=== PATIENT | female | born 1985 | race Caucasian/White ===

== ENCOUNTER 2017-05-07 19:15 | Emergency (ER) | payer OTHER ==
[2017-05-07 20:11] VITALS: BP 120/72; PULSE 63; TEMP 98.2; BMI 25.9
--- NOTE | 2017-05-07 20:28 | PDOC ---
History of Present Illness - General Chief Complaint: Pain Stated Complaint: HEADACHE History Source: Patient Exam Limitations: No Limitations - History of Present Illness Initial Comments: 05/07/17 21:20 31-year-old female with no medical history presents to the emergency department complaining of frontal/bitemporal 6/10 dull nonradiating intermittent headache with noise sensitivity but without fever, chills, nausea/vomiting, visual disturbance, neck pain/neck stiffness, back pains, chest pain, shortness of breath, abdominal pains, ext numbness or tingling sensation. Patient denies any trauma or injury. Patient states she was resting when the headache came on gradually. Patient took Tylenol with minimal relief there are no exacerbating factors. LMP x1week ago Timing/Duration: reports: other (x5d) Past History - Past Medical History Allergies/Adverse Reactions: Allergies Allergy/AdvReac Type Severity Reaction Status Date / Time No Known Allergies Allergy Verified 05/07/17 20:08 Other medical history: Pt denies - Suicide/Smoking/Psychosocial Hx Smoking History: Never smoked Have you smoked in the past 12 months: No Information on smoking cessation initiated: No Hx Alcohol Use: No Drug/Substance Use Hx: No Substance Use Type: None Review of Systems - Review of Systems Able to Perform ROS?: Yes Comments:: 05/07/17 21:21 CONSTITUTIONAL: Absent: fever, chills, diaphoresis, generalized weakness, malaise, loss of appetite HEENT: Absent: rhinorrhea, nasal congestion, throat pain, throat swelling, difficulty swallowing, mouth swelling, ear pain, eye pain, visual Changes CARDIOVASCULAR: Absent: chest pain, loss of consciousness, palpitations, irregular heart rate, peripheral edema RESPIRATORY: Absent: cough, shortness of breath, dyspnea with exertion, orthopnea, wheezing, stridor, hemoptysis GASTROINTESTINAL: Absent: abdominal pain, abdominal distension, nausea, vomiting, diarrhea, constipation, melena, hematochezia GENITOURINARY: Absent: dysuria, frequency, urgency, hesitancy, hematuria, flank pain, genital pain MUSCULOSKELETAL: Absent: myalgia, arthralgia, joint swelling SKIN: Absent: rash, itching, pallor HEMATOLOGIC/IMMUNOLOGIC: Absent: easy bleeding, easy bruising, lymphadenopathy, frequent infections ENDOCRINE: Absent: unexplained weight gain, unexplained weight loss, heat intolerance, cold intolerance NEUROLOGIC: +HAIR Absent: focal weakness or paresthesias, dizziness, unsteady gait, seizure, mental status changes, bladder or bowel incontinence PSYCHIATRIC: Absent: anxiety, depression, suicidal or homicidal ideation, hallucinations. Is the patient limited Yakut proficient: No *Physical Exam - Vital Signs Last Vital Signs Temp Pulse Resp BP Pulse Ox 98.2 F 63 18 120/72 100 05/07/17 20:08 05/07/17 20:08 05/07/17 20:08 05/07/17 20:08 05/07/17 20:08 - Physical Exam Comments: 05/07/17 21:23 GENERAL: Well developed, well nourished. Awake and alert. No acute distress. HEENT: Normocephalic, atraumatic. PERRLA, EOMI. No conjunctival pallor. Sclera are non- icteric. Moist mucous membranes. Oropharynx is clear. NECK: Supple. Full ROM. No JVD. Carotid pulses 2+ and symmetric, without bruits. No thyromegaly. No lymphadenopathy. CARDIOVASCULAR: Regular rate and rhythm. No murmurs, rubs, or gallops. Distal pulses are 2+ and symmetric. PULMONARY: No evidence of respiratory distress. Lungs clear to auscultation bilaterally. No wheezing, rales or rhonchi. ABDOMINAL: Soft. Non-tender. Non-distended. No rebound or guarding. No organomegaly. Normoactive bowel sounds. MUSCULOSKELETAL Normal range of motion at all joints. No bony deformities or tenderness. No CVA tenderness. EXTREMITIES: No cyanosis. No clubbing. No edema. No calf tenderness. SKIN: Warm and dry. Normal capillary refill. No rashes. No jaundice. NEUROLOGICAL: Alert, awake, appropriate. Cranial nerves 2-12 intact. No deficits to light touch and temperature in face, upper extremities and lower extremities. No motor deficits in the in face, upper extremities and lower extremities. Normoreflexic in the upper and lower extremities. Normal speech. Toes are down- going bilaterally. Gait is normal without ataxia. PSYCHIATRIC: Cooperative. Good eye contact. Appropriate mood and affect. ED Treatment Course - LABORATORY CBC & Chemistry Diagram: 05/07/17 20:26 05/07/17 20:26 - RADIOLOGY Radiograph Interpretation: 05/07/17 21:23 CT head w/o contrast: No acute brain parenchymal abnormality. No hemorrhage, mass or acute territorial infarct. Clear visualized paranasal sinuses. Visualized mastoid ear cells clear. Progress Note - Progress Note Progress Note: 2250hrs: Pt feels "better" 08/10 *DC/Admit/Observation/Transfer Diagnosis at time of Disposition: Headache Qualifiers: Headache type: tension-type Headache chronicity pattern: acute headache Intractability: not intractable Qualified Code(s): G44.209 - Tension-type headache, unspecified, not intractable; G44.209 - Tension-type headache, unspecified, not intractable - Discharge Dispostion Disposition: HOME Condition at time of disposition: Stable Admit: No - Referrals Referrals: Patrice Romano MD [Staff Physician] - - Patient Instructions Printed Discharge Instructions: DI for Headache Additional Instructions: Follow-up with the neurologist listed on your discharge. Return back to the emergency department for severe/persistent or worsening symptoms.
[2017-05-07 20:43] LABS: BASOPHIL 0.2 % (0-2.0); EOSINOPHIL 0.3 % (0-4.5); MCH 32.3 pg (25.7-33.7); MCHC 34.4 g/dl (32.0-36.0); MEAN PLT VOLUME 9.5 fl (7.5-11.1); NEUTROPHILS 54.6 % (42.8-82.8); PLATELET COUNT 155 K/MM3 (134-434); RDW 12.6 % (11.6-15.6); WHITE BLOOD COUNT 5.8 K/mm3 (4.0-10.0)
[2017-05-07] MEDS ORDERED: SODIUM CHLORIDE 1,000 ML IV STA (20:47)
[2017-05-07] MEDS ORDERED: METOCLOPRAMIDE HCL INJECTION 10 MG/2 ML VIAL IVPB ONE (20:47)
[2017-05-07] MEDS ORDERED: METOCLOPRAMIDE HCL INJECTION 10 MG/2 ML VIAL ONE (20:57)
[2017-05-07 21:05] LABS: ALK PHOS 100 U/L (45-117); ANION GAP 5 (8-16); BILIRUBIN,TOTAL 0.4 mg/dL (0.2-1.0); CALCIUM 8.4 mg/dL (8.5-10.1); CO2 30 mmol/L (21-32); CREATININE 0.8 mg/dL (0.55-1.02); GLUCOSE,RANDOM 92 mg/dL (74-106); SGOT/AST 18 U/L (15-37); SGPT/ALT 22 U/L (12-78); TOT PROT 7.5 g/dl (6.4-8.2)
--- NOTE | 2017-05-07 23:11 | PDOC ---
*Physical Exam - Vital Signs Last Vital Signs Temp Pulse Resp BP Pulse Ox 98.2 F 63 18 120/72 100 05/07/17 20:08 05/07/17 20:08 05/07/17 20:08 05/07/17 20:08 05/07/17 20:08 - Physical Exam Comments: 05/07/17 23:10 The patient was examined by [ADELAIDA Lora] under my direct supervision. I personally evaluated the patient. I concur with the above findings and the plan of care. Patient is a 31-year-old female who presents with atraumatic frontal and bitemporal headache for the past several days. No focal neurological deficits are noted. Patient is afebrile. Will rule out intracranial mass. I do not suspect subarachnoid hemorrhage or meningitis at this time. ED Treatment Course - LABORATORY CBC & Chemistry Diagram: 05/07/17 20:26 05/07/17 20:26 - ADDITIONAL ORDERS Additional order review: Laboratory Results 05/07/17 05/07/17 20:26 20:26 Sodium 141 Potassium 3.7 Chloride 106 Carbon Dioxide 30 Anion Gap 5 L BUN 8 Creatinine 0.8 Creat Clearance w eGFR > 60 Random Glucose 92 Calcium 8.4 L Total Bilirubin 0.4 AST 18 ALT 22 Alkaline Phosphatase 100 Total Protein 7.5 Albumin 4.0 Urine HCG, Qual Negative 05/07/17 20:26 RBC 4.36 MCV 94.0 MCHC 34.4 RDW 12.6 MPV 9.5 Neutrophils % 54.6 Lymphocytes % 38.4 Monocytes % 6.5 Eosinophils % 0.3 Basophils % 0.2 - Medications Given in the ED: ED Medications Discontinued Medications Generic Name Dose Route Start Last Admin Trade Name Freq PRN Reason Stop Dose Admin Sodium Chloride 1,000 mls @ 1,000 mls/hr 05/07/17 20:47 05/07/17 21:07 Normal Saline - IV 05/07/17 21:46 1,000 mls/hr ASDIR STA Administration Metoclopramide HCl 10 mg 05/07/17 20:47 05/07/17 21:07 Reglan Injection - IVPB 05/07/17 20:48 10 mg ONCE ONE Administration *DC/Admit/Observation/Transfer Diagnosis at time of Disposition: Headache - Discharge Dispostion Disposition: HOME Condition at time of disposition: Stable - Referrals Referrals: Patrice Romano MD [Staff Physician] - - Patient Instructions Printed Discharge Instructions: DI for Headache Additional Instructions: Follow-up with the neurologist listed on your discharge. Return back to the emergency department for severe/persistent or worsening symptoms.
== END 2017-05-07 23:59 | disposition home or self-care (01) ==
LOC: JER 19:15
PROC: 3E033GC Introduction of Other Therapeutic Substance into Peripheral Vein, Percutaneous Approach (ICD-10-PCS; principal; 2017-05-07)
PROC: 3E0337Z Introduction of Electrolytic and Water Balance Substance into Peripheral Vein, Percutaneous Approach (ICD-10-PCS; 2017-05-07)
DX: G44.209 Tension-type headache, unspecified, not intractable (principal)
CPT/HCPCS: 36415; 70450-TC; 80053; 84703; 85025; 96361; 96374; 99282-25